=== PATIENT | male | born 1985 | race African-American/Black ===

== ENCOUNTER 2018-03-02 22:11 | Emergency (ER) | payer OTHER ==
[2018-03-02] MEDS ORDERED: NA CHLORIDE 0.9% 1,000 ML ONE (22:33)
[2018-03-02 22:59] LABS: Absolute Lymphocytes (CBC) 1.7 K/uL (0.7-4.9); Absolute Monocytes 0.3 K/uL (0.1-1.3); Absolute Neutrophil 3.3 K/uL (1.8-8.0); Basophils % 0.9 % (0-1.3); Eosinophils % 3.1 % (0-4.4); Hematocrit 36.1 % (39.6-49.0); Lymphocytes % 30.3 % (15.3-44.8); MCH 22.8 pg (27.0-35.0); MCV 72.8 fL (80-100); MPV 10.1 fL (7.6-11.3); RBC Red Blood Cell Count 4.96 M/uL (4.33-5.43)
[2018-03-02 23:03] LABS: Protime INR 0.96
[2018-03-03 00:10] LABS: ALT/SGPT 22 U/L (12-78); AST/SGOT 24 U/L (15-37); Albumin 3.3 g/dL (3.4-5.0); Alcohol Serum/Plasma < 3 mg/dL (0-3); Alkaline Phosphatase 76 U/L (45-117); BUN Blood Urea Nitrogen 13 mg/dL (7-18); Bicarbonate 26 mmol/L (21-32); Bilirubin Direct < 0.1 mg/dL (0-0.2); Bilirubin Total 0.2 mg/dL (0.2-1.0); Glucose Level 124 mg/dL (74-106); Magnesium 1.7 mg/dL (1.8-2.4); Potassium 3.6 mmol/L (3.5-5.1); Protein, Total 6.6 g/dL (6.4-8.2); Sodium Level 142 mmol/L (136-145)
[2018-03-03 01:22] LABS: Barbiturates NEGATIVE (NEGATIVE); Benzodiazepines NEGATIVE (NEGATIVE); Cocaine NEGATIVE (NEGATIVE); METHAMPHETAM POSITIVE (NEGATIVE); Methadone NEGATIVE (NEGATIVE); Opiates NEGATIVE (NEGATIVE); Phencyclidine NEGATIVE (NEGATIVE); THC Cannibis NEGATIVE (NEGATIVE)
[2018-03-03] MEDS ORDERED: NA CHLORIDE 0.9% 1,000 ML ONE (01:48)
[2018-03-03 02:10] LABS: Urine Blood 2+ (NEG); Urine Glucose NEGATIVE (NEG); Urine Protein 1+ (NEG); Urine pH 5.5 (5.0-7.0)
--- NOTE | 2018-03-03 03:12 | EDPHYS ---
Physician Documentation [facility] Name: Cm Spence Age: 32 yrs Sex: Male : 1985 Arrival Date: 03/02/2018 Time: 22:12 Bed 6 Private MD: ED Physician Tomer Mays HPI: 03/02 22:20 This 32 yrs old Black Male presents to ER via EMS with complaints of Probable Seizure. cp 22:20 The patient presents after having a possible seizure episode, found on ground. cp 22:20 Associated injury: The patient did not suffer any apparent associated injury. EMS care: cp none. Current symptoms: decreased level of consciousness, responsive to painful stimuli. Historical: - Allergies: 22:28 Unable to obtain; tl2 - Home Meds: 22:28 Albuterol Inhl [Active]; tl2 - PMHx: 22:28 Asthma; tl2 - Immunization history:: Adult Immunizations up to date. - Social history:: Smoking status: unknown. - Ebola Screening: : No symptoms or risks identified at this time. - Unable to obtain history due to: obtunded state. ROS: 22:25 Constitutional: Negative for fever. cp 22:25 Neuro: Positive for altered mental status. cp 22:25 Unable to obtain ROS due to altered mental status. Exam: 22:38 Constitutional: The patient appears non-diaphoretic, non-toxic, well developed, well cp nourished. 22:38 Head/Face: Normocephalic, atraumatic. cp 22:38 Eyes: Periorbital structures: appear normal, Pupils: equal, round, and reactive to light and accomodation, Conjunctiva: normal, no exudate, no injection, Lids and lashes: appear normal, bilaterally. 22:38 ENT: External ear(s): are unremarkable, Ear canal(s): are normal, clear, TM's: dullness, bilaterally, Nose: is normal, Mouth: Lips: moist, Oral mucosa: moist, Posterior pharynx: is normal, airway is patent, no erythema, no exudate. 22:38 Neck: C-spine: C-collar placed in ED. 22:38 Chest/axilla: Inspection: normal. 22:38 Cardiovascular: Rate: normal, Rhythm: regular, Pulses: Pulses are 2+ in right radial artery and left radial artery. 22:38 Respiratory: the patient does not display signs of respiratory distress, Respirations: normal, no use of accessory muscles, no retractions, no splinting, no tachypnea, labored breathing, is not present, Breath sounds: are clear throughout, no decreased breath sounds, no stridor, no wheezing. 22:38 Abdomen/GI: Inspection: abdomen appears normal, Bowel sounds: active, all quadrants, Palpation: abdomen is soft and non-tender, in all quadrants. 22:38 Musculoskeletal/extremity: Exam is negative for deformity, injury. 22:38 Skin: cellulitis, is not appreciated, no rash present. 22:38 Neuro: Mentation: responsive to pain. 22:45 ECG was reviewed by the Attending Physician. Vital Signs: 22:25 BP 104 / 79; Pulse 85; Resp 20; Temp 97.5(A); Pulse Ox 93% on R/A; Weight 99.79 kg; tl2 Height 5 ft. 11 in. (180.34 cm); 23:14 BP 108 / 72; Pulse 67; Resp 14; Pulse Ox 100% on R/A; tl2 03/03 00:57 BP 120 / 78; Pulse 61; Resp 16; Pulse Ox 97% on R/A; tl2 01:44 BP 109 / 71; Pulse 60; Resp 14; Pulse Ox 97% on R/A; tl2 02:47 BP 125 / 80; Pulse 55; Resp 18; Pulse Ox 99% on R/A; tl2 03/02 22:25 Body Mass Index 30.68 (99.79 kg, 180.34 cm) tl2 MDM: 03/02 22:18 Patient medically screened. cp 23:00 Differential diagnosis: cerebral vascular accident, drug overdose, cardiac arrhythmia, cp seizure. 03/03 02:20 Data reviewed: vital signs, nurses notes, lab test result(s), EKG, radiologic studies, cp CT scan. 02:20 Test interpretation: by ED physician or midlevel provider: ECG. 03/02 22:18 Order name: Acetaminophen; Complete Time: 00:22 cp 03/02 22:18 Order name: Basic Metabolic Panel; Complete Time: 00:22 cp 03/02 22:18 Order name: CBC with Diff; Complete Time: 23:37 cp 03/03 00:22 Interpretation: Normal except: HGB 11.3; HCT 36.1; MCV 72.8; MCH 22.8; MCHC 31.4. cp 03/02 22:18 Order name: ETOH Level; Complete Time: 00:22 cp 03/02 22:18 Order name: Hepatic Function; Complete Time: 00:22 cp 03/02 22:18 Order name: PT-INR; Complete Time: 23:37 cp 03/02 22:18 Order name: CT Head C Spine cp 03/02 22:18 Order name: Ptt, Activated; Complete Time: 23:37 cp 03/02 22:18 Order name: Salicylate; Complete Time: 23:37 cp 03/02 22:18 Order name: Urine Drug Screen; Complete Time: 02:16 cp 03/03 02:17 Interpretation: Normal except: METHAMPHETAMINE POSITIVE. cp 03/02 22:18 Order name: Troponin I; Complete Time: 23:37 cp 03/02 22:18 Order name: Magnesium; Complete Time: 00:22 cp 03/03 00:58 Order name: Urine Dipstick--Ancillary (enter results); Complete Time: 02:16 eb 03/02 22:18 Order name: EKG; Complete Time: 22:19 cp 03/02 22:18 Order name: EKG - Nurse/Tech; Complete Time: 22:43 cp 03/02 22:18 Order name: IV Saline Lock; Complete Time: 22:20 cp 03/02 22:18 Order name: Labs collected and sent; Complete Time: 22:28 cp 03/02 22:18 Order name: Urine Dipstick-Ancillary (obtain specimen); Complete Time: 00:57 cp 03/02 22:34 Order name: C-Collar; Complete Time: 22:43 cp 03/03 00:23 Order name: Peraza; Complete Time: 00:56 cp EC/29 22:45 Rate is 65 beats/min. AK interval is normal. QRS interval is normal. QT interval is cp normal. Interpreted by me. Reviewed by me. Administered Medications: 22:43 Drug: NS 0.9% 1000 ml Route: IV; Rate: 1 bolus; Site: right hand; tl2 03/03 01:49 Follow up: IV Status: Completed infusion; IV Intake: 1000ml tl2 01:49 Drug: NS 0.9% 1000 ml Route: IV; Rate: 125 ml/hr; Site: right hand; tl2 04:50 Follow up: IV Status: Infusion continued upon transfer tl2 03:18 Drug: Magnesium Sulfate 1 grams Route: IVPB; Infused Over: 1 hrs; Site: right hand; tl2 04:50 Follow up: IV Status: Infusion continued upon transfer tl2 Disposition: 03:00 Chart complete. cp 11:16 Co-signature as Attending Physician, Tomer Mays MD I agree with the assessment and wa plan of care. Disposition: 03/03/18 03:11 Transfer ordered to [facility]. Diagnosis are Altered mental status, unspecified, Seizure. - Reason for transfer: Higher level of care. - Accepting physician is Dubose. - Condition is Stable. - Problem is new. - Symptoms have improved. Signatures: Dispatcher [employer] EDMS Mykel Islas PA PA cp Knox, Taylor, RN RN 2 Tomer Mays MD MD nc Corrections: (The following items were deleted from the chart) 03:20 03:11 03/03/2018 03:11 Transfer ordered to [facility]. Diagnosis is Altered mental cp status, unspecified. Reason for transfer: Higher level of care. Accepting physician is doctor. Condition is Stable. Problem is new. Symptoms have improved. cp 04:50 03:20 03/03/2018 03:11 Transfer ordered to [facility]. Diagnosis is Altered mental tl2 status, unspecified; Seizure. Reason for transfer: Higher level of care. Accepting physician is Dubose. Condition is Stable. Problem is new. Symptoms have improved. cp
--- NOTE | 2018-03-03 03:12 | ER ---
Nurse's Notes [facility] Name: Cm Spence Age: 32 yrs Sex: Male : 1985 Arrival Date: 03/02/2018 Time: 22:12 Bed 6 Private MD: Diagnosis: Altered mental status, unspecified;Seizure Presentation: 03/02 22:20 Presenting complaint: EMS states: Reported seizure at unit. Unsure if due to history or tl2 drug use. Unable to obtain history due to infirmary being closed. Pt is post ictal, only responsive to pain. Vomited x 1 during episode. Transition of care: custody. Onset of symptoms was March 02, 2018. Risk Assessment: Do you want to hurt yourself or someone else? Patient reports no desire to harm self or others. Initial Sepsis Screen: Does the patient meet any 2 criteria? No. Patient's initial sepsis screen is negative. Does the patient have a suspected source of infection? No. Patient's initial sepsis screen is negative. Care prior to arrival: IV initiated. 20 GA, in the right wrist, Glucose check: 158 Oxygen administered. via nasal cannula. 22:20 Method Of Arrival: EMS: [facility] tl2 22:20 Acuity: CHUCK 2 tl2 Triage Assessment: 22:20 General: Appears in no apparent distress. Behavior is listless. Pain:. Neuro: Level of tl2 Consciousness is post ictal, Oriented to none. Cardiovascular: Rhythm is sinus rhythm. Respiratory: Airway is patent Respiratory effort is even, unlabored, Respiratory pattern is regular, symmetrical, Breath sounds are clear bilaterally. GI: Parent/caregiver reports the patient having vomiting. : No signs and/or symptoms were reported regarding the genitourinary system. Derm: Skin is pink, warm \T\ dry. Historical: - Allergies: 22:28 Unable to obtain; tl2 - Home Meds: 22:28 Albuterol Inhl [Active]; tl2 - PMHx: 22:28 Asthma; tl2 - Immunization history:: Adult Immunizations up to date. - Social history:: Smoking status: unknown. - Ebola Screening: : No symptoms or risks identified at this time. - Unable to obtain history due to: obtunded state. Screenin:26 Abuse screen: Denies threats or abuse. Nutritional screening: No deficits noted. tl2 Tuberculosis screening: No symptoms or risk factors identified. Fall Risk IV access (20 points). Mental Status- Overestimates/Forgets Limitations (15 pts.). Assessment: 22:20 General: see triage assessment. tl2 23:15 Reassessment: Patient appears in no apparent distress at this time. No changes from tl2 previously documented assessment. 03/03 00:30 Reassessment: Patient appears in no apparent distress at this time. Pt is still only tl2 responsive to pain. VSS. 02:00 Reassessment: Patient appears in no apparent distress at this time. tl2 04:00 Reassessment: Patient appears in no apparent distress at this time. PT stable and ready tl2 for transfer. Vital Signs: 03/02 22:25 BP 104 / 79; Pulse 85; Resp 20; Temp 97.5(A); Pulse Ox 93% on R/A; Weight 99.79 kg; tl2 Height 5 ft. 11 in. (180.34 cm); 23:14 BP 108 / 72; Pulse 67; Resp 14; Pulse Ox 100% on R/A; tl2 03/03 00:57 BP 120 / 78; Pulse 61; Resp 16; Pulse Ox 97% on R/A; tl2 01:44 BP 109 / 71; Pulse 60; Resp 14; Pulse Ox 97% on R/A; tl2 02:47 BP 125 / 80; Pulse 55; Resp 18; Pulse Ox 99% on R/A; tl2 03/02 22:25 Body Mass Index 30.68 (99.79 kg, 180.34 cm) tl2 Vitals: 03/02 23:14 Cardiac Rhythm Assessment Sinus rhythm. tl2 ED Course: 22:12 Patient arrived in ED. ds1 22:16 Mykel Islas PA is PHCP. cp 22:16 Tomer Mays MD is Attending Physician. cp 22:22 Triage completed. tl2 22:25 Arm band placed on right wrist. tl2 22:26 Patient has correct armband on for positive identification. Bed in low position. Call tl2 light in reach. Side rails up X2. Security at bedside. 22:26 Maintain EMS IV. Dressing intact. Good blood return noted. Site clean \T\ dry. Gauge \T\ tl 2 site: 20 g R hand. 22:36 Radiology exam delayed due to per auto body straightener patient not ready to come down to CT at this sj time. 23:12 Ashlyn Henson, RN is Primary Nurse. tl2 23:[address] via stretcher. kw1 03/03 00:06 CT completed. Patient tolerated procedure well. Patient moved back from CT. kw1 00:08 CT Head C Spine In Process Unspecified. EDMS 02:40 initiated transfer with Leela at the [facility] managed care line. eb 03:[address] Aggarwal from [facility] to george BANKS for patient transfer consultation. eb 03:17 patient has been accepted to the [facility]. Patient to go to [address] Sedrick ramon has accepted the patient in transfer. Administrative approval given by Leela Tong RN regional transfer liaison. 04:00 No provider procedures requiring assistance completed. Patient transferred, IV remains tl2 in place. Administered Medications: 03/02 22:43 Drug: NS 0.9% 1000 ml Route: IV; Rate: 1 bolus; Site: right hand; tl2 03/03 01:49 Follow up: IV Status: Completed infusion; IV Intake: 1000ml tl2 01:49 Drug: NS 0.9% 1000 ml Route: IV; Rate: 125 ml/hr; Site: right hand; tl2 04:50 Follow up: IV Status: Infusion continued upon transfer tl2 03:18 Drug: Magnesium Sulfate 1 grams Route: IVPB; Infused Over: 1 hrs; Site: right hand; tl2 04:50 Follow up: IV Status: Infusion continued upon transfer tl2 Intake: 01:49 IV: 1000ml; Total: 1000ml. tl2 Outcome: 03:11 ER care complete, transfer ordered by MD. delgado 04:00 Transferred by ground EMS to [facility], Transfer form tl2 completed. 04:00 Condition: stable 04:00 Discharge instructions given to EMS. 04:50 Patient left the ED. tl2 Signatures: Dispatcher [employer] LORENANE Whit Scott Demi 1 Mykel Islas PA PA cp Knox, Taylor, LEANA RN tl2 Sonja Smith kw1 Vanessa Jackson Corrections: (The following items were deleted from the chart) 03/02 22:37 22:[address] via stretcher. [facility]
[2018-03-03] MEDS ORDERED: MAGNESIUM SULFATE 1 gm IVPB 1 GM/100 ML BAG IV ONE (03:17)
[2018-03-03 04:54] VITALS: TEMP 97.5
[2018-03-03 04:59] VITALS: BP 125/80; O2SAT 99
--- NOTE | 2018-03-03 08:40 | EKG ---
Test Date: 2018-03-02 Test Time: 22:38:33 Film Vault Supervisor: MARYANN MEASUREMENT RESULTS: Intervals: Rate: 65 [place]: QRSD: 90 QT: 362 QTc: 376 Isabel: P: 52 [place]: QRS: 66 T: 35 INTERPRETIVE STATEMENTS: Sinus rhythm with sinus arrhythmia Normal ECG No previous ECG available for comparison Electronically Signed On 03-03-18 08:40:30 CDT by Gadiel Allen
--- NOTE | 2018-03-03 09:19 | RAD REPORT ---
EXAM DESCRIPTION: CT - [id number] - 03/03/2018 2:57 am CLINICAL HISTORY: Seizure, fall, head and neck injury A preliminary written report was provided at the time of the study, and the report was reviewed prio r to final dictation. COMPARISON: None. TECHNIQUE: Axial 5 mm thick images of the head were obtained. Axial 2 mm thick images of the cervic al spine were obtained with sagittal and coronal reconstruction images generated and reviewed. All CT scans are performed using dose optimization technique as appropriate and may include automated exposure control or mA/KV adjustment according to patient size. FINDINGS: No intracranial hemorrhage, mass, edema or acute intracranial finding. No suspicion for acute infarct ion. No extra-axial fluid collections. Mastoid air cells and paranasal sinuses are clear. No globe or orbit abnormality seen. Cervical body height and alignment are normal. No disk space narrowing. No fracture or acute bony abn ormality. No paraspinal mass or hematoma. IMPRESSION: Negative CT head examination for acute or significant finding. Negative CT cervical spine examination for acute or significant finding.
== END 2018-03-03 04:50 | disposition short-term general hospital (02) ==
LOC: ER 22:11
DX: R56.9 Unspecified convulsions (principal); J45.909 Unspecified asthma, uncomplicated
CPT/HCPCS: 36415; 70450; 72125; 80048; 80076; 80307; 80320; 80329; 81003; 83735; 84484; 85025; 85610; 85730; 93005; 96361; 96365; 96366; 99285; J3475; J7030